=== PATIENT | female | born 1980 | race African-American/Black ===

== ENCOUNTER 2019-03-05 14:56 | Emergency (ER) | payer MEDICARE ==
[2019-03-05] MEDS ORDERED: ASPIRIN 81 MG TABLET, CHEWABLE PO ONE (15:27)
--- NOTE | 2019-03-05 15:29 | ER Document Report ---
ED Medical Screen (RME) - General Chief Complaint: Chest Pain Stated Complaint: CHEST PAIN Time Seen by Provider: 03/05/19 15:22 Mode of Arrival: Ambulatory Information source: Patient Notes: 39-year-old female presented to ED for complaint of chest pain heaviness to the center of her chest x2 days. She states she has been short of breath. She states she did not come to the emergency room because here visiting her sister and her sister was out of state so she was watching her niece and her mother and her mother has dementia and she could not leave them at home by themselves. She states she does have a history of a stroke stroke in 2005 and 2009 both of these were because she was obese at over 400 pounds. He states she also has a lupus enlarged heart high blood pressure and neuropathy. She states she has had a gastric bypass and a breast reduction as well as her gallbladder removed. She denies smoking drinking or doing any drugs. She is alert oriented respirations regular and unlabored speaking in full sentences and walks with even steady gait. I have greeted and performed a rapid initial assessment of this patient. A comprehensive ED assessment and evaluation of the patient, analysis of test results and completion of medical decision making process will be conducted by an additional ED providers. TRAVEL OUTSIDE OF THE [place] IN LAST 30 DAYS: No - Related Data Allergies/Adverse Reactions: levofloxacin [From Levaquin] Allergy (Verified 03/05/19 14:57) sulfamethoxazole [From Bactrim] Allergy (Verified 03/05/19 14:57) trimethoprim [From Bactrim] Allergy (Verified 03/05/19 14:57) Physical Exam - Vital signs Vitals: Temp Pulse Resp BP Pulse Ox 98.8 F 80 16 151/63 H 100 03/05/19 15:09 03/05/19 15:09 03/05/19 15:09 03/05/19 15:09 03/05/19 15:09 Course - Vital Signs Vital signs: Temp Pulse Resp BP Pulse Ox 98.8 F 80 16 151/63 H 100 03/05/19 15:09 03/05/19 15:09 03/05/19 15:09 03/05/19 15:09 03/05/19 15:09
--- NOTE | 2019-03-05 15:47 | ER Document Report ---
ED General - General Chief Complaint: Chest Pain Stated Complaint: CHEST PAIN Time Seen by Provider: 03/05/19 15:22 Primary Care Provider: IRENE FAJARDO MD [ACTIVE STAFF] - Follow up in 3-5 days (local primary care. ) Mode of Arrival: Ambulatory Notes: Patient is a 39-year-old female that presents to the emergency department for chief complaint of chest pain. The patient reports that the pain started 2 days ago. The currently rate the pain as 6 out of 10, and described as constant heav iness in the middle of her chest. They have had associated shortness of breath. Denies any nausea, vomiting, diaphoresis or worse with exertion. Their risk factors for heart disease include family history, hypertension. Patient states she is visiting from out of town in [place], she flew here several weeks ago, planning on going home by the end of the month, she did not have any prolonged car rides, denies any leg swelling or redness. She denies prior history of DVT or PE, she states she does have lupus, which is currently controlled. Past Medical History: Peripheral neuropathy, systemic lupus erythematous Past Surgical History: Gastric bypass surgery, breast reduction, cholecystectomy Social History: Denies tobacco, alcohol or drug use. Family History: Reviewed and noncontributory for presenting illness Allergies: Reviewed, see documented allergy list. REVIEW OF SYSTEMS: Other than noted above, the 12 point review of systems was reviewed with the patient and were negative, all pertinent findings are included in the HPI. PHYSICAL EXAMINATION: Vital signs reviewed, nursing noted reviewed. GENERAL: Well-appearing, well-nourished and in no acute distress. HEAD: Atraumatic, normocephalic. EYES: Eyes appear normal, extraocular movements intact, sclera anicteric, conjunctiva are normal. ENT: nares patent, oropharynx clear without exudates. Moist mucous membranes. NECK: Normal range of motion, supple without lymphadenopathy LUNGS: Breath sounds clear to auscultation bilaterally and equal. No wheezes rales or rhonchi. HEART: Regular rate and rhythm without murmurs ABDOMEN: Soft, nontender, normoactive bowel sounds. No rebound, guarding, or rigidity. No masses appreciated. EXTREMITIES: Nontender, good range of motion, no pitting or edema. NEUROLOGICAL: No focal neurological deficits. Moves all extremities spontaneously Motor and sensory grossly intact on exam. PSYCH: Normal mood, normal affect. SKIN: Warm, Dry, normal turgor, no rashes or lesions noted on exposed skin TRAVEL OUTSIDE OF THE [place] IN LAST 30 DAYS: No - Related Data Allergies/Adverse Reactions: levofloxacin [From Levaquin] Allergy (Verified 03/05/19 14:57) sulfamethoxazole [From Bactrim] Allergy (Verified 03/05/19 14:57) trimethoprim [From Bactrim] Allergy (Verified 03/05/19 14:57) Past Medical History - General Information source: Patient - Social History Smoking Status: Never Smoker Family History: Reviewed & Not Pertinent Patient has suicidal ideation: No Patient has homicidal ideation: No Renal/ Medical History: Denies: Hx Peritoneal Dialysis Physical Exam - Vital signs Vitals: Temp Pulse Resp BP Pulse Ox 98.8 F 80 16 151/63 H 100 03/05/19 15:09 03/05/19 15:09 03/05/19 15:09 03/05/19 15:09 03/05/19 15:09 Course - Re-evaluation Re-evalutation: Patient seen and examined vital signs reviewed. Laboratory data and/or imaging were ordered as appropriate for the patient's presenting symptoms and complaint, with consideration of any critical or life threatening conditions that may be associated with their obtained history and exam as noted above. Patient was treated with GI cocktail, aspirin was ordered in triage Results were reviewed when available and demonstrated negative troponin, d-dimer was positive, therefore CT Teresa Mooney of the chest was ordered, this was negative for PE and otherwise unremarkable, blood work otherwise unremarkable as well exception of a mild anemia The patient was re-evaluated and was stable, states she felt improved after the GI cocktail, patient has been taken Motrin on and off for headaches as well as Aleve, which I advised her not to do given that she had a Jaylin-en-Y gastric bypass surgery, which could be causing her symptoms of chest discomfort now, I will prescribe her Meprazole 40 mg daily, advised avoiding NSAIDs and taking Tylenol for her headaches, and to follow-up with her primary care when she returns to [place]. Evaluation was most consistent with chest discomfort, mostly likely GI etiology Results were discussed with the patient at this point, after careful consideration I feel that that patient can be discharged from the emergency department, the patient was educated treatments and reasons to return to the emergency department based on their presumed diagnosis as noted above, they were advised to followup with a primary care physician in 2-3 days. Patient was agreeable to plan of care. *Note is created using voice recognition software and may contain spelling, syntax or grammatical errors. Laboratory 03/05/19 03/05/19 03/05/19 16:00 16:00 16:00 WBC 4.6 RBC 4.47 Hgb 10.5 L Hct 33.0 L MCV 74 L MCH 23.5 L MCHC 31.8 L RDW 17.8 H Plt Count 363 Lymph % (Auto) 30.6 Tama % (Auto) 9.4 Eos % (Auto) 0.3 Baso % (Auto) 0.9 Absolute Neuts (auto) 2.7 Absolute Lymphs (auto) 1.4 Absolute Monos (auto) 0.4 Absolute Eos (auto) 0.0 Absolute Basos (auto) 0.0 Seg Neutrophils % 58.8 D-Dimer Sodium 140.2 Potassium 4.5 Chloride 110 H Carbon Dioxide 25 Anion Gap 5 BUN 6 L Creatinine 0.44 L Est GFR ( Amer) > 60 Est GFR (MDRD) Non-Af > 60 Glucose 81 Calcium 9.3 Total Bilirubin 0.5 Direct Bilirubin 0.4 Neonat Total Bilirubin Not Reportable Neonat Direct Bilirubin Not Reportable Neonat Indirect Bili Not Reportable AST 39 H ALT 17 Alkaline Phosphatase 111 Troponin I Total Protein 8.1 Albumin 3.7 Serum HCG, Qual NEGATIVE Urine Color Urine Appearance Urine pH Ur Specific [place] Urine Protein Urine Glucose (UA) Urine Ketones Urine Blood Urine Nitrite Urine Bilirubin Urine Urobilinogen Ur Leukocyte Esterase Urine WBC (Auto) Urine RBC (Auto) Squamous Epi Cells Auto Urine Mucus (Auto) Urine Ascorbic Acid 03/05/19 03/05/19 03/05/19 16:00 16:00 16:00 WBC RBC Hgb Hct MCV MCH MCHC RDW Plt Count Lymph % (Auto) [place] % (Auto) Eos % (Auto) Baso % (Auto) Absolute Neuts (auto) Absolute Lymphs (auto) Absolute Monos (auto) Absolute Eos (auto) Absolute Basos (auto) Seg Neutrophils % D-Dimer 1.91 H Sodium Potassium Chloride Carbon Dioxide Anion Gap BUN Creatinine Est GFR ( Amer) Est GFR (MDRD) Non-Af Glucose Calcium Total Bilirubin Direct Bilirubin Neonat Total Bilirubin Neonat Direct Bilirubin Neonat Indirect Bili AST ALT Alkaline Phosphatase Troponin I < 0.012 Total Protein Albumin Serum HCG, Qual Urine Color YELLOW Urine Appearance CLEAR Urine pH 6.0 Ur Specific [place] 1.012 Urine Protein 100 H Urine Glucose (UA) NEGATIVE Urine Ketones NEGATIVE Urine Blood SMALL H Urine Nitrite NEGATIVE Urine Bilirubin NEGATIVE Urine Urobilinogen NEGATIVE Ur Leukocyte Esterase NEGATIVE Urine WBC (Auto) 1 Urine RBC (Auto) 0 Squamous Epi Cells Auto 1 Urine Mucus (Auto) OCC Urine Ascorbic Acid NEGATIVE Chest X-Ray 03/05/19 15:27 IMPRESSION: NO ACUTE DISEASE. Chest/Abdomen CTA 03/05/19 16:48 IMPRESSION: NORMAL CTA OF THE CHEST. NO PULMONARY EMBOLI. - Vital Signs Vital signs: Temp Pulse Resp BP Pulse Ox 99.1 F 73 18 150/94 H 100 03/05/19 19:51 03/05/19 19:51 03/05/19 19:51 03/05/19 19:51 03/05/19 19:51 - Laboratory Result Diagrams: 03/05/19 16:00 03/05/19 16:00 Laboratory results interpreted by me: 03/05/19 03/05/19 03/05/19 16:00 16:00 16:00 Hgb 10.5 L Hct 33.0 L MCV 74 L MCH 23.5 L MCHC 31.8 L RDW 17.8 H D-Dimer 1.91 H Chloride 110 H BUN 6 L Creatinine 0.44 L AST 39 H Urine Protein Urine Blood 03/05/19 16:00 Hgb Hct MCV MCH MCHC RDW D-Dimer Chloride BUN Creatinine AST Urine Protein 100 H Urine Blood SMALL H - EKG Interpretation by Me Additional EKG results interpreted by me: EKG demonstrates sinus rhythm with a ventricular rate of 60 bpm, normal axis, QTC 456 ms, no evidence of acute ischemia in this EKG, compared to prior EKG from 03/04/2016, without significant change. Discharge - Discharge Clinical Impression: Chest pain Qualifiers: Chest pain type: unspecified Qualified Code(s): R07.9 - Chest pain, unspecified Condition: Stable Disposition: HOME, SELF-CARE Instructions: Chest Pain of Unclear Cause ([facility]) Additional Instructions: Please start taking the prescribed omeprazole, 40 mg once daily for the next 2 weeks, you have been given a month's worth of it though if needed, avoid any anti-inflammatory medicine such as Aleve, ibuprofen, Motrin, or Advil. Please follow-up with your primary care physician when you return to [place]. If you have any worsening of your symptoms, or things are not improving, do not hesitate to return to the emergency department. Prescriptions: Omeprazole 40 mg PO DAILY #30 capsule.dr Referrals: IRENE FAJARDO MD [ACTIVE STAFF] - Follow up in 3-5 days (local primary care. )
[2019-03-05] MEDS ORDERED: METOCLOPRAMIDE HCL ORAL SOLN 10 MG/10 ML UDCUP PO ONE (16:10)
[2019-03-05] MEDS ORDERED: LIDOCAINE 2% VISCOUS SOLN 20 ML UDCUP PO ONE (16:10)
[2019-03-05] MEDS ORDERED: MAG HYDROX/AL HYDROX/SIMETH SUSP 30 ML UDCUP PO ONE (16:10)
[2019-03-05 16:20] LABS: ABSOLUTE LYMPHOCYTES (AUTO) 1.4 10^3/uL (0.5-4.7); ABSOLUTE MONOCYTES (AUTO) 0.4 10^3/uL (0.1-1.4); ABSOLUTE NEUT (AUTO) 2.7 10^3/uL (1.7-8.2); BASOPHILS % (AUTO) 0.9 % (0-2); EOSINOPHILS % (AUTO) 0.3 % (0-6); HEMOGLOBIN 10.5 g/dL (12.0-15.5); LYMPHOCYTES % (AUTO) 30.6 % (13-45); MEAN CORPUSCULAR HEMOGLOBIN 23.5 pg (27.0-33.4); MEAN CORPUSCULAR HGB CONC 31.8 g/dL (32.0-36.0); MEAN CORPUSCULAR VOLUME 74 fl (80-97); MONOCYTES % (AUTO) 9.4 % (3-13); PLATELET COUNT 363 10^3/uL (150-450); RED BLOOD COUNT 4.47 10^6/uL (3.72-5.28); RED CELL DISTRIBUTION WIDTH 17.8 % (11.5-14.0); SEGMENTED NEUTROPHILS % (AUTO) 58.8 % (42-78); TOTAL CELLS COUNTED % (AUTO) 100 %; WHITE BLOOD COUNT 4.6 10^3/uL (4.0-10.5)
[2019-03-05 16:25] LABS: APPEARANCE,URINE CLEAR; BILIRUBIN,URINE NEGATIVE (NEGATIVE); COLOR,URINE YELLOW; GLUCOSE, URINE NEGATIVE (NEGATIVE); KETONES,URINE NEGATIVE (NEGATIVE); LEUKOCYTE ESTERASE,URINE NEGATIVE (NEGATIVE); NITRITE,URINE NEGATIVE (NEGATIVE); PROTEIN,URINE 100 mg/dL (NEGATIVE); URINE SPECIFIC GRAVITY 1.012; UROBILINOGEN,URINE NEGATIVE mg/dL (<2.0)
--- NOTE | 2019-03-05 16:27 | RADIOLOGY REPORT (SQ) ---
EXAM DESCRIPTION: CHEST 2 VIEWS COMPLETED DATE/TIME: 03/05/2019 4:16 pm REASON FOR STUDY: chest pain COMPARISON: None. EXAM PARAMETERS: NUMBER OF VIEWS: two views TECHNIQUE: Digital Frontal and Lateral radiographic views of the chest acquired. RADIATION DOSE: NA LIMITATIONS: none FINDINGS: LUNGS AND PLEURA: No acute infiltrates or effusions. MEDIASTINUM AND HILAR STRUCTURES: No masses or contour abnormalities. HEART AND VASCULAR STRUCTURES: Normal heart and pulmonary vasculature. BONES: There is a density overlying 1st left rib felt represent between the left anterior 1st and pos terior left 5th rib combined with pulmonary vascular markings. HARDWARE: None in the chest. OTHER: No other significant finding. IMPRESSION: NO ACUTE DISEASE. TECHNICAL DOCUMENTATION: JOB ID: [id number] 2010 [employer]- All Rights Reserved Reading location - IP/workstation name: [email or web address]
[2019-03-05 16:36] LABS: ALBUMIN 3.7 g/dL (3.5-5.0); ALKALINE PHOSPHATASE 111 U/L (38-126); ANION GAP 5 (5-19); ASPARTATE AMINO TRANSFERASE 39 U/L (14-36); BILIRUBIN,DIRECT 0.4 mg/dL (0.0-0.4); BILIRUBIN,TOTAL 0.5 mg/dL (0.2-1.3); BLOOD UREA NITROGEN 6 mg/dL (7-20); CALCIUM 9.3 mg/dL (8.4-10.2); CARBON DIOXIDE 25 mmol/L (22-30); CHLORIDE 110 mmol/L (98-107); GLUCOSE 81 mg/dL (75-110); POTASSIUM 4.5 mmol/L (3.6-5.0); TOTAL PROTEIN 8.1 g/dL (6.3-8.2)
--- NOTE | 2019-03-05 19:10 | EKG REPORT ---
SEVERITY:- ABNORMAL ECG - SINUS RHYTHM NONSPECIFIC T ABNORMALITIES, INFERIOR LEADS : Confirmed by: Alina Roque MD 05-Mar-2019 19:10:02
--- NOTE | 2019-03-05 19:31 | RADIOLOGY REPORT (SQ) ---
EXAM DESCRIPTION: CTA CHEST COMPLETED DATE/TIME: 03/05/2019 7:06 pm REASON FOR STUDY: chest pain, elevated d dimer COMPARISON: None. TECHNIQUE: CT scan of the chest performed using helical scanning technique with dynamic intravenous contrast injection. Images reviewed with lung, soft tissue and bone windows. Reconstructed coronal and sagittal MPR images reviewed. Additional 3 dimensional post-processing performed to develop Maximal Intensity Projection images (IL P). All images stored on PACS. All CT scanners at this facility use dose modulation, iterative reconstruction, and/or weight based d osing when appropriate to reduce radiation dose to as low as reasonably achievable (ALARA). [facility]: Dose Right [facility]: CareDose [facility]: Dose Right [facility]: Teradose 4D [facility]: Infantium CONTRAST TYPE AND DOSE: contrast/concentration: Isovue 350.00 mg/ml; Total Contrast Delivered: 65.0 ml; Total Saline Delivered: 77.0 ml Contrast bolus optimized for the pulmonary arteries. Not diagnostic for the aorta. RENAL FUNCTION: Creatinine: 0.44 RADIATION DOSE: CT Rad equipment meets quality standard of care and radiation dose reduction techniq ues were employed. CTDIvol: 3.8 - 15.6 mGy. DLP: 606 mGy-cm. . LIMITATIONS: None. FINDINGS: LUNGS AND PLEURA: No masses, infiltrates, or pneumothorax. No pleural effusions or pleura l calcifications. AORTA AND GREAT VESSELS: Changes of a bovine arch. Contrast bolus not optimized for the aorta. HEART: No pericardial effusion. No significant coronary artery calcifications. PULMONARY ARTERIES: No emboli visualized in the main pulmonary arteries or the segmental branches. HILAR AND MEDIASTINAL STRUCTURES: No identified masses or abnormal nodes. HARDWARE: None in the chest. UPPER ABDOMEN: Status post gastric bypass. Status post cholecystectomy. THYROID AND OTHER SOFT TISSUES: Normal. BONES: No acute or significant finding. 3D MIPS: Confirm above findings. IMPRESSION: NORMAL CTA OF THE CHEST. NO PULMONARY EMBOLI. COMMENT: Quality ID # [id number]: Final reports with documentation of one or more dose reduction techniques (e.g., Automated exposure control, adjustment of the mA and/or kV according to patient size, use of iterative reconstruction technique) TECHNICAL DOCUMENTATION: JOB ID: [id number] 2010 [employer]- All Rights Reserved Reading location - IP/workstation name: [email or web address]
[2019-03-05 19:52] VITALS: BP 150/94
== END 2019-03-05 19:52 | disposition home or self-care (01) ==
LOC: ER 14:56
DX: R07.9 Chest pain, unspecified (principal); R06.02 Shortness of breath
CPT/HCPCS: 93005; 99285; 36415; 84703; 85025; 80053; 81001; 84484; 85379; 71046; 71275; 93010; A9270 ×2; J3490